=== PATIENT | female | born 1970 | race Caucasian/White ===

== ENCOUNTER → 2017-07-27 | Outpatient (REF) ==
[~2017-07-27] MED LIST: CLINDAMYCIN300 MG PO; COUMADIN10 MG PO; DUO-KAPS1 CAP PO; PERCOCET 325 MG1 TA2 PO; SYNTHROID0.2 MG IJ
[2017-07-27 08:16] LABS: PH 5 (5-8); URINE APPEARANCE Hazy; URINE BACTERIA None Seen /hpf; URINE BILIRUBIN Negative (NEGATIVE); URINE BLOOD Negative (NEGATIVE); URINE COLOR Yellow; URINE GLUCOSE Negative (NEGATIVE); URINE KETONE Negative (NEGATIVE); URINE RBC 0-2 /hpf; URINE UROBILINOGEN Negative (NEGATIVE)
== END ==
LOC: ZMSC 08:02
PROVIDERS: Orthopaedic Surgery
DX: Z02.89 Encounter for other administrative examinations (principal)

== ENCOUNTER 2018-05-23 02:31 | Emergency (ER) | payer BC ==
[2018-05-23 02:40] VITALS: TEMP 97.7
[2018-05-23] MEDS ORDERED: SYNTHROID0.175 MG PO (03:17)
[2018-05-23] MEDS ORDERED: PREDNISONE20 MG PO (03:18)
[2018-05-23 03:40] VITALS: BP 131/81; PULSE 88
== END 2018-05-23 03:40 | disposition home or self-care (01) ==
LOC: COL.ER 02:31
DX: L50.9 Urticaria, unspecified (principal); E03.9 Hypothyroidism, unspecified; Z98.890 Other specified postprocedural states
CPT/HCPCS: J7512